=== PATIENT | female | born 1995 | race African-American/Black ===

== ENCOUNTER 2018-04-28 08:40 | Emergency (ER) | payer OTHER ==
[~2018-04-28] VITALS: Ht 162.6 cm; Wt 143.4 kg
[~2018-04-28 08:40] MED LIST: LORTAB 10-325 M1 TAB PO; TRAMADOL HCL50 MG PO; ZYRTEC10 M1 OR
[2018-04-28] MEDS ORDERED: ZYRTEC10 M5 PO (08:56)
[2018-04-28 10:19] LABS: INFLUENZA A NONE DETECTED (NONE DETECT); INFLUENZA B NONE DETECTED (NONE DETECT)
[2018-04-28] MEDS ORDERED: ZITHROMAX250 MG PO (10:58)
[2018-04-28] MEDS ORDERED: PROVENTIL108 MCG/AC IN (10:59)
[2018-04-28 11:05] VITALS: BP 132/76
[2018-04-28] MEDS ORDERED: MEDDOSEPAK PO (11:05)
== END 2018-04-28 11:05 | disposition home or self-care (01) | DRG 153 ==
LOC: ED 08:40
PROVIDERS: Emergency Medicine
DX: J06.9 Acute upper respiratory infection, unspecified (principal); R05 Cough; R09.89 Other specified symptoms and signs involving the circulatory and respiratory systems; R09.81 Nasal congestion; R50.9 Fever, unspecified

== ENCOUNTER 2021-04-26 12:23 | Emergency (ER) | payer OTHER ==
[~2021-04-26] VITALS: Ht 162.6 cm; Wt 130.0 kg
[~2021-04-26 12:23] MED LIST changes: +MEDDOSEPAK PO; +PROVENTIL108 MCG/AC IN; +ZITHROMAX250 MG PO; +ZYRTEC10 M5 PO
[2021-04-26 14:53] LABS: HEMATOCRIT 37.7 % (37.0-47.0); HEMOGLOBIN 12.2 g/dl (12.0-16.0); IMMATURE GRANULOCYTES 0.3 % (0.0-5.0); MEAN CELL VOLUME 81.1 fL CALC (80.0-100.0); MEAN CORPUSCULAR HGB 26.2 pG CALC (26.0-32.0); MEAN CORPUSCULAR HGB CONC 32.4 g/dL CAL (32.0-36.0); NEUT# 5.32 thou/uL (2.00-7.15); RED BLOOD COUNT 4.65 mill/uL (4.20-5.60); RED CELL DISTRI WIDTH 15.9 % (11.5-15.5)
[2021-04-26 15:04] LABS: ALBUMIN 4.2 g/dL (3.2-5.0); ALKALINE PHOSPHATASE 124 u/l (38-126); ANION GAP 16 (6-22 (CALC)); BUN 4 mg/dL (7-17); BUN/CREATININE RATIO 5 (12-20 (CALC)); CARBON DIOXIDE 21 mmol/l (22-30); CHLORIDE 103 mmol/l (95-108); CREATININE 0.8 mg/dL (0.5-1.0); GFR > 60 ML/MIN (>=60 (CALC)); GFR FOR AFR.AMER. > 60 ML/MIN (>=60 (CALC)); POTASSIUM 4.2 mmol/l (3.5-5.1); SGOT/AST 22 u/l (14-36); SODIUM 136 mmol/l (137-146); TOTAL PROTEIN 8.2 g/dL (6.3-8.2)
[2021-04-26 15:06] LABS: BILIRUBIN, TOTAL 0.6 mg/dL (0.0-1.4)
[2021-04-26 16:30] LABS: URINE BLOOD DIPSTICK TRACE-INTACT (NEGATIVE); URINE COLOR YELLOW; URINE GLUCOSE - DIPSTICK NEGATIVE (NEGATIVE); URINE KETONE >=80 mg/dL (NEGATIVE); URINE LEUK ESTERASE NEGATIVE (NEGATIVE); URINE PROTEIN - DIPSTICK TRACE mg/dL (NEG-TRACE); URINE SPECIFIC GRAVITY >=1.030; URINE UROBILINOGEN - DIPSTICK 0.2 E.U./dL (0.2)
[2021-04-26 16:34] LABS: URINE BILIRUBIN - DIPSTICK NEGATIVE (NEGATIVE); URINE NITRITE - DIPSTICK NEGATIVE (Negative)
[2021-04-26 18:25] VITALS: BP 112/56
== END 2021-04-26 18:18 | disposition home or self-care (01) | DRG 641 ==
LOC: ED 12:23
PROVIDERS: Emergency Medicine
DX: E86.0 Dehydration (principal); Z98.84 Bariatric surgery status

== ENCOUNTER 2021-05-27 15:41 | Emergency (ER) | payer OTHER ==
[~2021-05-27] VITALS: Ht 162.6 cm; Wt 150.0 kg
[2021-05-27] MEDS ORDERED: LEVOTHYROXIN50 MCG PO (16:03)
[2021-05-27] MEDS ORDERED: AMOX/K CLAV875 M1 PO (16:31)
[2021-05-27 16:39] VITALS: BP 132/87
== END 2021-05-27 16:39 | disposition home or self-care (01) | DRG 605 ==
LOC: ED 15:41
DX: S00.531A Contusion of lip, initial encounter (principal); S51.851A Open bite of right forearm, initial encounter; Y04.2XXA Assault by strike against or bumped into by another person, initial encounter; Y04.1XXA Assault by human bite, initial encounter; Y92.149 Unspecified place in prison as the place of occurrence of the external cause; Y99.0 Civilian activity done for income or pay